=== PATIENT | female | born 1990 | race African-American/Black ===

== ENCOUNTER 2024-03-15 00:07 | Emergency (ER) | payer MEDICAID, SELFPAY ==
--- NOTE | ~2024-03-15 | XR_ITS ---
EXAMINATION: XR LUMBOSACRAL SPINE CLINICAL INFORMATION: Low back pain. COMPARISON: None available. TECHNIQUE: Three views of the lumbosacral spine. FINDINGS: The vertebral bodies and posterior elements are normal. The disc spaces are preserved and the vertebral alignment is normal. The paraspinal soft tissues are normal. XR/XR lumbar spine 2-3V IMPRESSION: Unremarkable examination. Electronically signed by: Adrien Ray MD 03/15/2024 03:18 AM EDT
[2024-03-15 00:20] VITALS: BP 118/65; PULSE 60; RESP 20; TEMP 36.4; O2SAT 95; BMI 33.2
[2024-03-15 00:51] VITALS: BP 135/71; PULSE 54; RESP 16; TEMP 36.7; O2SAT 94
--- NOTE | 2024-03-15 00:56 | PC.NURSE ---
patient reporting pain in the left hip and buttock area that radiates down to the knee area. No Numbness or tingling is noted, CMS intact bilateral lower extremities.
[2024-03-15 02:00] VITALS: BP 133/55; PULSE 54; RESP 17; TEMP 36.6; O2SAT 100
--- OUTSIDE RECORDS SUMMARY | 2024-03-15 02:14 | XMS_ITS | Continuity of Care Document ---
Author Organization [facility] Kunal fariass Address [address], [address] [place] [address]- Care Team Providers Care Security Sme Name Role Phone Not on Staff, PCP Primary Care Physician Unavail able Encounter [facility] [place] Date(s): 01/18/22 - 05/18/22 [facility] Kunal Legers [facility] [address] [place], [place] [address] Attending Physician: Not on Staff, Attending MD Referring Physician: Not on Staff, Referring MD Allergies, Adverse Reactions, Alerts Substance Reaction Severity Status Latex Active Immunizations Given and Recorded Vaccine Date Status Refusal Reason tetanus/diphtheria/pertussis, acel(Tdap) 05/04/15 Given influenza virus vaccine, inactivated 05/04/15 Give n Influenza Vaccine (oldterm) 1 03/29/09 Given 1Admin Note: VIS GIVEN 2008- Medications Depo-Provera Contraceptive 150 mg/mL intramuscular suspension = 150 mg, Intramuscular, Once, # 1 mL, 3 Refills, Soft Stop, 09/06/15 10:48:46, 150 mg Intramuscular Once Start Date: 09/06/15 Status: Ordered ferrous sulfate 325 mg oral tablet 1 tablet = 325 mg, By Mouth, Daily, # 30 tablet, 3 Refills, Maintenance, 04/12/15 12:23:23, Tablet,1 tablet By Mouth Daily,x30 days Start Date: 04/12/15 Stop Date: 08/10/15 Status: Ordered ibuprofen 600 mg oral tablet 1 tablet = 600 mg, By Mouth, Every 6 hours, # 40 tablet, 0 Refills, Maintenance, 06/14/15 10:04:14,Tablet, 1 tablet By Mouth Every 6 hours,x10 days Start Date: 06/14/15 Stop Date: 06/24/15 Status: Ordered Problem List Condition Confirmation Course Effective Dates Status Health St at[facility] Informant History of depression Confirmed Active Social History Social History Type Response Smoking Status Type: Cigarettes;Nev er smoker; Other: none; entered on: 03/12/15 Sex Patient Care team information Care Team Personnel Name: Not on Staff, PCP Position: [facility] Physician (General Medicine) Member Role: PCP Care Team Related Persons Name: GENIATAMIKO Address: home [address] [place] [address] Name: RASHAAD CORMIER Address: [place] [address]
--- OUTSIDE RECORDS SUMMARY | 2024-03-15 02:15 | XMS_ITS | Continuity of Care Document ---
Author Organization [facility] Kunal fariass Address [address], [address] [place] [address]- Care Team Providers Care Supervisor Vat House Name Role Phone Not on Staff, PCP Primary Care Physician Unavail able Encounter [facility] [place] Date(s): 08/01/22 - 08/08/22 [facility] Kunal Legers [address] [place], [place] [address] Attending Physician: Yaneth Mckeon MD Referring Physician: Not on Staff, Referring MD Allergies, Adverse Reactions, Alerts Substance Reaction Severity Status Latex Active Immunizations Given and Recorded Vaccine Date Status Refusal Reason tetanus/diphtheria/pertussis, acel(Tdap) 05/04/15 Given influenza virus vaccine, inactivated 05/04/15 Give n Influenza Vaccine (oldterm) 1 03/29/09 Given 1Admin Note: VIS GIVEN 2009-03 Problem List Condition Confirmation Course Effective Dates Status Health St atus Informant History of depression Confirmed Active Obese class I Confirmed Active Vital Signs Most recent to oldest [Reference Range]: 1 Height 157.0 cm (08/01/22 9:12 AM) Weight 84.0 kg (08/01/22 9:12 AM) Body Mass Index [18.5-24.99 kg/m2] 34.08 kg/m2 *>HHI* (08/01/22 9:12 AM) Blood Pressure [90-138/55-84 mm Hg] 134/ 70mm Hg (08/01/22 9:12 AM) Blood pressure sites Arm, left (08/01/22 9:12 AM) Weight Obtained Via Standing scale (08/01/22 9:12 AM) Dry Weight Obtained Via Standing scale (08/01/22 9:12 AM) Social History Social History Type Response Smoking Status Type: Cigarettes;Nev er smoker; Other: none; entered on: 03/12/15 Sex Patient Care team information Care Team Personnel Name: Not on Staff, PCP Position: S Physician (General Medicine) Member Role: PCP Care Team Related Persons Name: CORMIERTAMIKO Address: [place] [address] Name: RASHAAD CORMIER Address: [place] [address] Name: REFUSED, NONE
--- OUTSIDE RECORDS SUMMARY | 2024-03-15 02:15 | XMS_ITS | Continuity of Care Document ---
Author Organization [facility] Kunal hurt's Address [address], [address] [place] [address]- Care Team Providers Care Print Finishing Worker Name Role Phone Not on Staff, PCP Primary Care Physician Unavail able Encounter [facility] [place] Date(s): 08/01/22 - 08/31/22 [facility] Kunal Legers [facility] [address] [place], [place] [address] Attending Physician: Mirian Veliz Admitting Physician: Mirian Veliz Referring Physician: AdmtrMirian Allergies, Adverse Reactions, Alerts Substance Reaction Severity Status Latex Active Immunizations Given and Recorded Vaccine Date Status Refusal Reason tetanus/diphtheria/pertussis, acel(Tdap) 05/04/15 Given influenza virus vaccine, inactivated 05/04/15 Give n Influenza Vaccine (oldterm) 1 03/29/09 Given 1Admin Note: VIS GIVEN 2009-03 Problem List Condition Confirmation Course Effective Dates Status Health St at[facility] Informant History of depression Confirmed Active Obese class I Confirmed Active Social History Social History Type Response Smoking Status Type: Cigarettes;Nev er smoker; Other: none; entered on: 03/12/15 Sex Patient Care team information Care Team Personnel Name: Not on Staff, PCP Position: S Physician (General Medicine) Member Role: PCP Care Team Related Persons Name: TAMIKO CORMIER Address: [address] [place] [address] Name: RASHAAD CORMIER Address: [address] [place] [address] Name: REFUSED, NONE
[2024-03-15] MEDS: Cyclobenzaprine HCl 10 MG TABLET PO (02:28)
[2024-03-15] MEDS: Ketorolac Tromethamine 60 MG/2 ML VIAL IM (02:28)
--- NOTE | 2024-03-15 02:30 | PC.NURSE ---
Patient ambulated with steady gait, independently to the bathroom and back to her bed.
--- NOTE | 2024-03-15 03:29 | ED.GENADULT ---
HPI - General Adult General Chief complaint: Extremity Problem Stated complaint: shooting pain through leg Time Seen by Provider: 03/15/24 02:16 Source: patient Mode of arrival: ambulatory Limitations: no limitations History of Present Illness ED Provider: Dr. Rodriguez HPI narrative: Patient with low back pain that radiates into her left leg. She denies trauma or heavy lifting, no bowel our bladder problems. Onset (ago): week(s) Radiation: extremity Severity: moderate Related Data Previous Rx's ?Medication ?Instructions ?Recorded cyclobenzaprine 10 mg tablet 10 mg PO TID #10 tabs 03/15/24 naproxen 500 mg tablet (Naprosyn) 500 mg PO BID #20 tabs 03/15/24 Allergies Allergy/AdvReac Type Severity Reaction Status Date / Time latex Allergy Hives Verified 03/15/24 00:22 Review of Systems Review of Systems: Yes all other systems are reviewed and are negative Neurologic: Denies Sensory deficit (Neuro) PMFSH Social History Social History Smoked in Last 30 Days: No Use of substances other than those prescribed or required for medical reasons: No Substance Use Type: Marijuana Advance Directives: No Advance Directives Information Provided: Yes Patient : No Physical Exam ED Vital Signs: Vital Signs - 24 hr 03/15/24 00:20 03/15/24 00:51 03/15/24 02:00 Temperature 97.5 F 98.0 F 97.8 F Pulse Rate 60 54 54 Respiratory Rate 20 16 17 Blood Pressure 118/65 135/71 133/55 L Pulse Oximetry 95 94 100 Oxygen Delivery Method Room Air Room Air Room Air BMI result Body Mass Index 33.2 Const Other: in pain with movement General: healthy appearing Nutritional Appearance: average body habitus Orientation/consciousness: oriented to person and patient oriented x3 Limitations: no limitations HENMT Head: Yes normal to inspection Ears: external ears normal General nose exam: Normal external nose present Mouth: Normal oral and palatal mucosa present and oropharynx normal Throat: Yes posterior oropharynx normal Eyes General: appearance normal, both eyes and all related structures Neck Neck: Yes normal visual inspection Chest Chest palpation & inspection: normal inspection of the chest Resp Auscultation: clear to auscultation bilaterally Cardio Jugular venous distension: no JVD Rate: regular rate Rhythm: regular rhythm Heart sounds: S1 normal heart sound present and S2 normal heart sound present GI Inspection: Yes normal to inspection Palpation (GI): Soft to palpation, nontender and No hepatosplenomegaly present Auscultation: normal bowel sounds Back/Spine/Pelvis Other: Left sciatic, and SI joint pain to palpation. Skin General skin exam: no rashes or lesions noted Neuro Other: Full range of left leg General: oriented to person and patient oriented x3 Cranial nerves: Yes CN's II-XII intact bilaterally Motor exam (neuro): 5/5 motor strength present throughout Sensory Exam: No Sensory deficit (Neuro) Extrem General: Yes normal to inspection Psych Appearance: grossly normal Course Reevaluation(s) Reevaluation #1: patient with sciatica and Left SI joint inflammation with pain to palpation and radiating down left leg. Xray shows mild djd Time: 03:34 Medications Administered Discontinued Medications Generic Name Dose Route Start Last Admin Trade Name Freq PRN Reason Stop Dose Admin Cyclobenzaprine HCl 10 mg 03/15/24 02:21 03/15/24 02:28 Cyclobenzaprine Hcl 10 Mg Tablet PO 03/15/24 02:22 10 mg ONCE ONE Administration Ketorolac Tromethamine 60 mg 03/15/24 02:21 03/15/24 02:28 Ketorolac Tromethamine 60 Mg/2 Ml Vial IM 03/15/24 02:22 60 mg ONCE ONE Administration Medical Decision Making Differential Diagnosis Differential Diagnoses: The differential diagnosis associated with the presentation includes (sciatica, lumbar radiculopathy, lumbago) Independent Interpretation I performed an independent interpretation of an: Plain X-Ray (Lumbar: mild djd) Tests considered The following testing was considered but not selected: MRI of back considered but there is no weakness, bowel or bladder dysfunction. Prescription Management I considered prescription management with: Pain Medication (will not give narcotics at this time) Discharge Plan Discharge Clinical Impression: Acute radicular low back pain, Sciatica Patient Disposition: Home, Self-Care Instructions: Acute Low Back Pain (ED), Lumbar Radiculopathy (ED) Prescriptions: New cyclobenzaprine 10 mg tablet 10 mg PO TID Qty: 10 0RF naproxen [Naprosyn] 500 mg tablet 500 mg PO BID Qty: 20 0RF Referrals: Physician,None [Primary Care Provider] - 5 days Print Language: Beninese
[2024-03-15 03:43] VITALS: BP 132/50; PULSE 66; RESP 20; TEMP 36.8; O2SAT 100
== END 2024-03-15 03:52 | disposition home or self-care (01) ==
PROVIDERS: Emergency Provider Emergency Medicine
DX: M54.42 Lumbago with sciatica, left side (principal)
CPT/HCPCS: 72100; 96372; 99284; J1885

== ENCOUNTER 2024-12-13 06:36 | Emergency (ER) | payer MEDICAID, SELFPAY ==
[2024-12-13 06:39] VITALS: BP 139/36; PULSE 85; RESP 18; O2SAT 97; BMI 34.7
--- NOTE | 2024-12-13 07:08 | ED.GENADULT ---
HPI - General Adult General Chief complaint: Extremity Problem Stated complaint: L Side Leg Pain Time Seen by Provider: 12/13/24 07:01 Source: patient Mode of arrival: ambulatory Limitations: no limitations History of Present Illness HPI narrative: This is a patricia 33 years old female presented to the emergency department ambulatory complaining of lower back pain that radiated to the left lower extremity. She drove herself to the emergency department. Symptoms have been ongoing for about a week. She denies any urinary incontinence saddle anesthesia no history of IV drug abuse no fever. She had prior symptoms like this in the past she was evaluated for back pain February 2024 in the emergency department. Onset (ago): week(s) Location: lower extremity ( Left lower extremity pain) Radiation: back Severity: moderate Quality: burning Pain Consistency: constant Relieving factors: none Exacerbating factors: none Associated symptoms: denies other symptoms Treatments prior to arrival: none Related Data Previous Rx's ?Medication ?Instructions ?Recorded cyclobenzaprine 10 mg tablet 10 mg PO TID #10 tabs 03/15/24 naproxen 500 mg tablet (Naprosyn) 500 mg PO BID #20 tabs 03/15/24 cyclobenzaprine 10 mg tablet 10 mg PO TID PRN back pain #14 tabs 12/13/24 naproxen 500 mg tablet (Naprosyn) 500 mg PO BID PRN PAIN #20 tabs 12/13/24 Allergies Allergy/AdvReac Type Severity Reaction Status Date / Time latex Allergy Hives Verified 12/13/24 06:41 Review of Systems Constitutional: Constitutional: Reports no additional constitutional complaints ENT: Reports system reviewed and no additional complaints, except as documented Cardiovascular: Cardiovascular: Reports no additional cardiovascular complaints [facility] Past Medical History [facility] Narrative: denies any major medical problems she has a history of chronic lower back pain Social History Social History Substance Use Type: Marijuana Advance Directives: No Advance Directives Information Provided: Yes Physical Exam ED Vital Signs: Vital Signs - 24 hr 12/13/24 07:23 Temperature 98.0 F Pulse Rate 63 Respiratory Rate 18 Blood Pressure 158/72 H Pulse Oximetry 97 Oxygen Delivery Method Room Air BMI result Body Mass Index 34.7 she looks well she is not toxic-appearing she is lying comfortable in the stretcher she has stable vital signs Const General: cooperative Nutritional Appearance: well nourished Orientation/consciousness: patient oriented x3 Limitations: no limitations HENMT Head: Yes normal to inspection Ears: hearing grossly normal bilaterally General nose exam: Normal external nose present Face and sinus: Yes normal facial exam Mouth: Normal oral and palatal mucosa present Neck Neck: Yes normal visual inspection and Yes full ROM Chest Chest palpation & inspection: normal inspection of the chest Resp Effort & Inspection: normal respiratory effort Auscultation: clear to auscultation bilaterally Cardio Jugular venous distension: no JVD Rate: regular rate Rhythm: regular rhythm GI Inspection: Yes normal to inspection Palpation (GI): Soft to palpation Auscultation: normal bowel sounds Skin General skin exam: no rashes or lesions noted Lesions: no lesions Rashes: no rashes Neuro Other: no re-examination was performed she has no deficit in strength no deficit in sensation reflexes are symmetrical gait is antalgic but he is able to ambulate without any issue. General: patient oriented x3 Cranial nerves: Yes CN's II-XII intact bilaterally Cognition (Neuro): normal cognition Motor exam (neuro): 5/5 motor strength present throughout Medications Administered Discontinued Medications Generic Name Dose Route Start Last Admin Trade Name Freq PRN Reason Stop Dose Admin Naproxen 500 mg 12/13/24 07:07 12/13/24 07:14 Naproxen 500 Mg Tablet PO 12/13/24 07:08 500 mg ONCE ONE Administration Medical Decision Making Medical Decision Making [facility] Narrative: Patient presented with a lower back pain left extremity she has no neuro deficit she has no red flags I think she can be discharged home she has a follow-up on Thursday with the primary care physician I do not think we need to get any imaging today Differential Diagnosis Differential Diagnoses: The differential diagnosis associated with the presentation includes sciatica/ radiculopathy/lower back pain Admission/Observation Consideration of admission/observation: Escalation of care including admission/observation considered Discharge Plan Discharge Clinical Impression: Sciatica Patient Disposition: Home, Self-Care Instructions: Sciatica (ED) Additional Instructions: please follow-up on Thursday with your primary care physician as we discussed take pain medicine as directed return to emergency room if you worse if you have numbness weakness in the left lower extremity any fever Prescriptions: New naproxen [Naprosyn] 500 mg tablet 500 mg PO BID PRN (Reason: PAIN) Qty: 20 0RF cyclobenzaprine 10 mg tablet 10 mg PO TID PRN (Reason: back pain) Qty: 14 0RF No Action cyclobenzaprine 10 mg tablet 10 mg PO TID Qty: 10 0RF naproxen [Naprosyn] 500 mg tablet 500 mg PO BID Qty: 20 0RF Referrals: Physician,None [Primary Care Provider] - 3 days Interventions: ED Discharge Assessment Last Done: 12/13/24 07:23 Discharge Date/Time: 12/13/24 07:24 Print Language: Afghan
[2024-12-13] MEDS: NaPROXEN 500 MG TABLET PO (07:14)
[2024-12-13 07:23] VITALS: BP 158/72; PULSE 63; RESP 18; TEMP 36.7; O2SAT 97
--- NOTE | 2024-12-13 07:24 | PC.NURSE ---
Pt d/c from ED, ambulated out with steady gait and d/c paperwork in hand.
== END 2024-12-13 07:24 | disposition home or self-care (01) ==
PROVIDERS: Emergency Provider Emergency Medicine
DX: M54.42 Lumbago with sciatica, left side (principal)
CPT/HCPCS: 99283